=== PATIENT | female | born 1985 | race Asian ===

== ENCOUNTER → 2017-10-22 | Outpatient (CLI) | payer OTHER ==
[2017-10-22 15:58] LABS: URINE APPEARANCE CLEAR (CLEAR); URINE BILIRUBIN NEG (NEG); URINE COLOR YELLOW; URINE NITRITE NEG (NEG); URINE SPECIFIC GRAVITY 1.023 (1.000-1.030); UROBILINOGEN NEG (NEG)
[2017-10-22 16:00] LABS: MANUAL MICROSCOPIC REQUIRED? NO; REVIEW REQ? NO
== END | disposition home or self-care (01) ==
LOC: C.LABSPEC 15:43
PROVIDERS: ATTEND Obstetrics & Gynecology
DX: Z34.01 Encounter for supervision of normal first pregnancy, first trimester (principal)

== ENCOUNTER → 2017-10-29 | Outpatient (CLI) | payer OTHER ==
[2017-10-29 14:45] LABS: BASO % 0.2 %; BASO ABS # 0.01 K/uL (0-0.2); COMPLETE YES; EOS % 2.5 %; HEMATOCRIT 38.2 % (37-47); IG% 0.2 %; LYMPH ABS # 1.61 K/uL (1.2-3.4); MEAN CELL VOLUME 89.9 fL (80-100); MEAN CORPUSCULAR HEMOGLOBIN 31.5 pg (25-34); MEAN CORPUSCULAR HGB CONC 35.1 g/dl (32-36); MEAN PLATELET VOLUME 11.1 fL (7.4-10.4); MONO % 8.4 %; NEUT % 54.7 %; PLATELET COUNT 179 K/uL (130-400); RED BLOOD COUNT 4.25 M/uL (4.2-5.4); WHITE BLOOD COUNT 4.74 K/uL (4.8-10.8)
== END | disposition home or self-care (01) ==
LOC: C.LAB1850 12:35
PROVIDERS: ATTEND Obstetrics & Gynecology
DX: Z34.01 Encounter for supervision of normal first pregnancy, first trimester (principal)

== ENCOUNTER → 2017-11-07 | Outpatient (CLI) | payer OTHER | END | disposition home or self-care (01) | LOC: C.LAB1850 09:51 | PROVIDERS: ATTEND Obstetrics & Gynecology | DX: O02.1 Missed abortion (principal); Z3A.00 Weeks of gestation of pregnancy not specified ==

== ENCOUNTER → 2017-11-14 | Outpatient (CLI) | payer OTHER | END | disposition home or self-care (01) | LOC: C.LAB1850 10:44 | PROVIDERS: ATTEND Obstetrics & Gynecology | DX: O02.1 Missed abortion (principal) ==

== ENCOUNTER → 2017-11-21 | Outpatient (CLI) | payer OTHER | END | disposition home or self-care (01) | LOC: C.LAB1850 10:25 | PROVIDERS: ATTEND Obstetrics & Gynecology | DX: O02.1 Missed abortion (principal); Z3A.00 Weeks of gestation of pregnancy not specified ==

== ENCOUNTER 2019-03-30 19:56 | Inpatient (IN) ==
--- OUTSIDE RECORDS SUMMARY | 2019-03-30 20:00 | External Medical Summary | Continuity of Care Document ---
:1985 Author Name Davon Navarro, Provider Address Unavailable Unavailable , Care Team Providers Name Role Phone Yonis Frost M.D. 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 83) (O24.419) Post term over 40 weeks (645.10) (O48.0) Allergies and Adverse Reactions No Known Drug Allergies (Allergy) Medications Vitamin TABS Refills: 0 Ketone Test In Vitro Strip; check ketones in urine sintia ry morning Melanie Frost Nov S. Start: 20-Jan-2019 Quantity: 1 50 Strip Box Refills: 1 OneTouch Verio Flex System w/Device Kit; CHECK BLOOD S UGARS 4 TIMES DAILY Melanie Frost Nov S. Start: 21-Jan-2019 Quantity: 1 Refills: 0 OneTouch Verio In Vitro Strip; Test 4 times daily Melanie Frost Nov S. Start: 21-Jan-2019 Quantity: 2 100 Strip Box Refills: 3 OneTouch Delica Lancets Fine; Test 4 times daily Maria Victoria Frost Nov S. Start: 21-Jan-2019 Quantity: 4 100 Unit Box Refills: 3 OneTouch Verio In Vitro Strip; Check BGL 4 times a day; Gestational Diabetes Mellitus; 648.83 Melanie Frost Nov S. Start: 21-Jan-2019 Quantity: 3 50 Strip Box Refills: 2 OneTouch Delica Lancets Fine; Check blood sugars 4 bob es a day Melanie Frost Nov S. Start: 21-Jan-2019 Quantity: 150 Refills: 2 Procedures History of nasal polypectomy Status: Com pleted Immunizations Tdap (Adacel) On: 03-Jan-2019 10:17 Lot #: [id number], [employer] Family History Mother Family history of breast cancer (V16.3) (Z80.3) Status: Acti ve Family history of hypertension (V17.49) (Z82.49) Status: Act dianne Family history of hepatitis (V18.8) (Z83.79) Status: Active Family history of kidney stones (V18.69) (Z84.1) Status: Act dianne Father Family history of lung cancer (V16.1) (Z80.1) Status: Active Plan of Treatment Planned Encounters Appointment; Sahil Ruiz M.D. Start: 31-Mar-2019 10:20 Request Planned Observations Planned Goals not documented Results Group B Strep/ROJO 27-Feb-2019 0:00 GRP B BETA STREP CULTURE - ROJO ORDERED P ROCEDURE : GRP B Beta Strep Culture -ROJO; Specime nt : Vaginal/Rectal S ource of Specimen: Vaginal/Rectal Group B Strep Culture : No Group B Strep isolated Non-stress test (Pending) Laboratory: In [place] 28-Mar-2019 11:19 Non-Stress Test Reactive Non-stress test (Pending) Laboratory: [place] 28-Mar-2019 13:37 Non-Stress Test Reactive Vital Signs 28-Mar-2019 10:02 Systolic 110 mm[Hg] Diastolic 80 mm[Hg] Weight 152.25 lb Height 64.5 in BSA Calculated 1.75 m2 BMI Calculated 25.73 kg/m2 21-Mar-2019 10:46 Systolic 122 mm[Hg] Diastolic 78 mm[Hg] Weight 150 lb Height 64.5 in BSA Calculated 1.74 m2 BMI Calculated 25.35 kg/m2 14-Mar-2019 9:33 Systolic 110 mm[Hg] Diastolic 66 mm[Hg] Weight 149.8 lb Height 64.5 in BSA Calculated 1.74 m2 BMI Calculated 25.32 kg/m2 07-Mar-2019 10:30 Systolic 116 mm[Hg] Diastolic 72 mm[Hg] Weight 149.0 lb Height 64.5 in BSA Calculated 1.74 m2 BMI Calculated 25.18 kg/m2 Encounters Appointment; Anastacia Lindsey M.D. 28-Mar-2019 10:30 Encounter Diagnosis: Problem not documented Appointment; OB SC1, Nonstress Test 28-Mar-2019 10:00 Encounter Diagnosis: Problem not documented Appointment; Payton Jimenez M.D. 21-Mar-2019 11:10 Encounter Diagnosis: Problem not documented Appointment; Ann Mcbride M.D. 14-Mar-2019 9:30 Encounter Diagnosis: Problem not documented Appointment; Ann Mcbride M.D. 07-Mar-2019 10:40 Encounter Diagnosis: Problem not documented Appointment; OBGYN JONES2, Ultrasound 07-Mar-2019 10:15 Encounter Diagnosis: Problem not documented Appointment; Marianne Manuel M.D. 27-Feb-2019 10:10 Encounter Diagnosis: Problem not documented Appointment; Dileep De Souza M.D. 20-Feb-2019 9:40 Encounter Diagnosis: Problem not documented Appointment; Payton Jimenez M.D. 06-Feb-2019 9:50 Encounter Diagnosis: Problem not documented Appointment; OBAMARILIS GOLDMAN2, Ultrasound 06-Feb-2019 9:30 Encounter Diagnosis: Problem not documented Appointment; Ranjit Copeland M.D. 20-Jan-2019 10:40 Encounter Diagnosis: Problem not documented Appointment; Adriana Guillen R.D. 20-Jan-2019 9:00 Encounter Diagnosis: Problem not documented Appointment; OBAMARILIS GOLDMAN2, Ultrasound 10-Jan-2019 9:45 Encounter Diagnosis: Problem not documented Appointment; Mita Mckeon DO 03-Jan-2019 9:30 Encounter Diagnosis: Problem not documented Appointment; Payton Jimenez M.D. 29-Nov-2018 14:30 Encounter Diagnosis: Problem not documented Appointment; Sahil Ruiz M.D. 30-Oct-2018 14:30 Encounter Diagnosis: Problem not documented Appointment; OBAMARILIS GOLDMAN2, Ultrasound 30-Oct-2018 13:15 Encounter Diagnosis: Problem not documented Appointment; Ranjit Copeland M.D. 02-Oct-2018 10:40 Encounter Diagnosis: Problem not documented Appointment; Ann Mcbride M.D. 02-Sep-2018 14:20 Encounter Diagnosis: Problem not documented Appointment; OB SC1, Procedure Rm 07-Aug-2018 12:00 Encounter Diagnosis: Problem not documented Appointment; Mita Mckeon DO 07-Aug-2018 12:00 Encounter Diagnosis: Problem not documented Appointment; OBGYN SC2, Ultrasound 01-Aug-2018 9:30 Encounter Diagnosis: Problem not documented Appointment; OB SC1, Nursing Station 30-Jul-2018 10:45 Encounter Diagnosis: Problem not documented Appointment; OBGYN SC1, Ultrasound 07-Nov-2017 9:30 Encounter Diagnosis: Problem not documented Appointment; Anastacia Lindsey M.D. 29-Oct-2017 13:20 Encounter Diagnosis: Problem not documented Appointment; OBGYN SC2, Ultrasound 29-Oct-2017 11:30 Encounter Diagnosis: Problem not documented Appointment; OB SC1, Procedure Rm 29-Oct-2017 9:50 Encounter Diagnosis: Problem not documented Appointment; Anastacia Lindsey M.D. 29-Oct-2017 9:50 Encounter Diagnosis: Problem not documented Appointment; OB AR1, Nursing Station 22-Oct-2017 13:00 Encounter Diagnosis: Problem not documented Appointment; Sahil Ruiz M.D. 31-Mar-2019 10:20 Encounter Diagnosis: Problem not documented
--- NOTE | 2019-03-30 20:17 | History & Physical Report ---
Date of Service March 30, 2019 Assessment & Plan (1) with 41 completed weeks gestation: fetus category one (2) Gestational diabetes: check blood sugar q 3 hrs (3) Normal labor: admit, expectant management, epidural on demand. arom as indicated. anticipate . History of Present Illness Chief Complaint: contractions Primary Care Provider: NO PCP Patient is a 33yo female, with iut at 40 4/7 weeks who presents to labor and delivery complaining of contractions. slight bloody show. no lof. +fm. complicated by a +antibody screen. Eventually diagnosed as a cold agglutin antibody--not clinically signficant to the . Diet controlled GDM./ AB+/ab positive cold agglutin/pap nl/ri/rprnr/hiv-/hepb-/gc/ct-/ 16 week gtt 163, nl 2 hr/ 28 week 2 hr gtt failed/panorama low risk/ gbs neg pmhx--small kidney polyp Allergies Allergy/AdvReac Type Severity Reaction Status Date / Time No Known Allergies Allergy Unverified 03/30/19 20:09 Home Medications Home Medications Medication Instructions Recorded Confirmed Type vit-iron fum-folic ac 1 tab PO DAILY 03/30/19 03/30/19 History [ Vitamin] Patient History Medical History GERD (gastroesophageal reflux disease) Nasal polyp Social History Preferred Language: Portuguese Communication Ability: Effective 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
[2019-03-30 20:29] LABS: Hematocrit (blood only) 37.7 % (37-47); Hemoglobin 13.3 g/dL (12.0-16.0); Mean Corpuscular Volume 96.4 fL (80-100); Mean Platelet Volume 10.3 fL (7.4-10.4); Platelet Count 130 K/uL (130-400); RDW Coefficient of Variation 14.2 % (11.5-14.5); RDW Standard Deviation 49.5 fL (36.4-46.3); Red Blood Count 3.91 M/uL (4.2-5.4); White Blood Count 5.98 K/uL (4.8-10.8)
[2019-03-30] MEDS: LACTATED RINGER'S 1,000 ML IV PRN ×2 (20:38→21:56)
[2019-03-30 20:53] LABS: Mean Corpuscular Hgb Conc 35.3 g/dL (32-36)
[2019-03-30] MEDS ORDERED: BUTORPHANOL TARTRATE 2 MG/ML VIAL IV ONE (20:55)
[2019-03-30] MEDS ORDERED: BUPIVACAINE 0.25% 30 ML VIAL ONE (21:10)
[2019-03-30] MEDS ORDERED: ePHEDrine sulfate 50 MG/ML AMP ONE (21:10)
[2019-03-30] MEDS ORDERED: fentaNYL citrate 100 MCG/2 ML VIAL ONE (21:10)
[2019-03-30] MEDS ORDERED: fentaNYL 2MCG/ML ROPIV 1.25MG/ML 100 ML BAG EPI ONE (21:11)
[2019-03-30] MEDS ORDERED: LACTATED RINGER'S 1,000 ML IV PRN (21:58)
[2019-03-30] MEDS ORDERED: ONDANSETRON INJ 2 MG/ML 2 ML VIAL IV PRN (21:58)
[2019-03-30] MEDS ORDERED: NALBUPHINE HCL INJ 10 MG/ML AMP IV PRN (21:58)
[2019-03-30] MEDS ORDERED: DiphenhydrAMINE HCL 50 MG/ML VIAL IV PRN (21:58)
[2019-03-30] MEDS ORDERED: ePHEDrine sulfate 50 MG/ML AMP IV PRN (21:58)
[2019-03-30] MEDS ORDERED: NALOXONE HCL 1 MG in SODIUM CHLORIDE 0.9% 1000ML 1,000 ML IV PRN (21:58)
[2019-03-30] MEDS ORDERED: NALOXONE HCL 0.4 MG/1 ML VIAL/CARP IV PRN (21:58)
--- NOTE | 2019-03-30 22:01 | Anesthesiology Consultation ---
Date of Service March 30, 2019 Assessment & Plan (1) Encounter for pre-operative examination: Chart Review Chart Review: Acceptable Risk for Labor Epidural Consults Requested none ASA ASA2 Proposed Anesthesia Anesthesia Type: Labor Epidural Risk / Benefits Reviewed With: PT / POA / Parent / Guardian, Accepts Plan and Informed Consent Obtained History Height/Weight Height: 5 ft 3 in Weight: 68.946 kg Allergies Allergy/AdvReac Type Severity Reaction Status Date / Time No Known Allergies Allergy Unverified 03/30/19 20:09 Medications Home Medications Medication Instructions Recorded Confirmed Last Taken vit-iron fum-folic ac 1 tab PO DAILY 03/30/19 03/30/19 03/29/19 [ Vitamin] Active Medications Generic Name Dose Route Start Last Admin Trade Name Freq PRN Reason Stop Dose Admin Lactated Ringer's 1,000 mls @ 125 mls/hr 03/30/19 20:12 03/30/19 21:56 Lr IV 04/01/19 20:11 999 mls/hr .Q8H PRN Administration L&D Protocol Protocol Past Medical History Medical History GERD (gastroesophageal reflux disease) Nasal polyp Exercise / Class Metabolic Activity II 4-5 Yardwork/Stairs/Walk up hill Past Anesthesia History No Hx of Anesthesia Complications and No Family Hx of Anesthesia Complications History of PONV No Hx of PONV and No Hx of Motion Sickness Social History Smoking Status: Never smoker Hx Alcohol Use: No Hx Substance Use: No substance use type: does not use Physical Exam Vital Signs Last Vital Signs Temp 98.2 F 03/30/19 20:00 Pulse 65 03/30/19 21:54 Resp 22 03/30/19 21:30 BP 105/69 03/30/19 20:01 Pulse Ox 96 03/30/19 21:54 ENMT Mouth: no dentition abnormality Thyromental Distance: > or= 3.5 Finger Breadths Mallampati Class: II Neck normal visual inspection Respiratory normal respiratory effort Auscultation: lungs clear to auscultation bilaterally Cardiovascular Rate/Rhythm: regular rate and regular rhythm
[2019-03-30] MEDS: fentaNYL 2MCG/ML ROPIV 1.25MG/ML 100 ML BAG EPI PRN (22:19)
--- NOTE | 2019-03-31 00:40 | Labor Progress Brief Note ---
Date of Service March 31, 2019 Subjective comfortable Assessment & Plan (1) Normal labor: continue expectant management. fetus overall reassuring. last bs was 91, check q 3 hrs. Physical Exam Constitutional: WD/WN, vitals as above Genitourinary: cx--7-8/100/-1 toco--q3min efm--150s with mod variability, small accels, rare variables arom--green mec, particulate Results & Data Vital Signs (Past 12 Hours) Vital Signs Temp Pulse Resp BP Pulse Ox 03/31/19 00:34 64 99 03/31/19 00:31 61 100/59 L 03/31/19 00:29 63 97 03/31/19 00:24 63 97 03/31/19 00:19 63 98 03/31/19 00:16 62 103/55 L 03/31/19 00:14 63 97 03/31/19 00:09 61 98 03/31/19 00:04 64 95 03/31/19 00:02 63 18 96/54 L 03/30/19 23:59 67 97 03/30/19 23:54 66 97 03/30/19 23:49 64 97 03/30/19 23:46 61 97/54 L 03/30/19 23:44 61 97 03/30/19 23:39 66 96 03/30/19 23:34 62 96 03/30/19 23:33 61 90/50 L 03/30/19 23:29 63 96 03/30/19 23:24 63 96 03/30/19 23:19 59 L 98 03/30/19 23:17 61 18 93/52 L 03/30/19 23:14 63 98 03/30/19 23:09 65 98 03/30/19 23:05 98.1 F 18 03/30/19 23:04 65 97 03/30/19 23:02 65 97/52 L 03/30/19 22:59 64 97 03/30/19 22:54 62 98 03/30/19 22:49 60 98 03/30/19 22:47 62 97/51 L 03/30/19 22:44 66 98 03/30/19 22:39 61 98 03/30/19 22:34 67 98 03/30/19 22:30 67 20 112/65 03/30/19 22:29 66 97 03/30/19 22:28 77 110/66 03/30/19 22:26 69 105/65 03/30/19 22:24 63 104/62 98 03/30/19 22:22 65 104/60 03/30/19 22:20 64 96/51 L 03/30/19 22:19 62 97 03/30/19 22:18 63 96/55 L 03/30/19 22:16 66 98/53 L 03/30/19 22:14 68 112/65 98 03/30/19 22:12 65 107/67 03/30/19 22:09 69 100 03/30/19 22:08 72 93 03/30/19 22:04 70 97 03/30/19 22:03 64 114/68 03/30/19 21:59 68 100 03/30/19 21:54 65 96 03/30/19 21:49 69 97 03/30/19 21:44 67 99 03/30/19 21:39 71 99 03/30/19 21:34 68 100 03/30/19 21:30 22 03/30/19 21:29 69 100 03/30/19 21:24 71 100 03/30/19 21:19 70 100 03/30/19 21:14 73 99 03/30/19 21:00 20 03/30/19 20:30 20 03/30/19 20:01 88 105/69 03/30/19 20:00 98.2 F 22
[2019-03-31] MEDS: LACTATED RINGER'S 1,000 ML IV PRN (03:38)
--- NOTE | 2019-03-31 05:10 | Labor Progress Brief Note ---
Date of Service March 31, 2019 Subjective comfortable Assessment & Plan (1) Normal labor: continue expectant management. fetus overall reassuring, mostly category one. anticipate . Physical Exam Constitutional: WD/WN, vitals as above Genitourinary: /- toco--q2-3min efm--140s with mod variability , +accels, rare variable Results & Data Vital Signs (Past 12 Hours) Vital Signs Temp Pulse Resp BP Pulse Ox 03/31/19 05:04 64 97 03/31/19 05:02 61 108/70 03/31/19 04:59 59 L 98 03/31/19 04:54 62 97 03/31/19 04:49 56 L 99 03/31/19 04:46 51 L 16 96/50 L 03/31/19 04:44 50 L 97 03/31/19 04:39 55 L 98 03/31/19 04:34 53 L 96 03/31/19 04:31 54 L 93/55 L 03/31/19 04:29 55 L 95 03/31/19 04:24 59 L 96 03/31/19 04:19 56 L 96 03/31/19 04:17 51 L 96/50 L 03/31/19 04:14 53 L 96 03/31/19 04:09 54 L 97 03/31/19 04:04 56 L 96 03/31/19 04:02 53 L 16 100/55 L 03/31/19 03:59 54 L 97 03/31/19 03:54 57 L 96 03/31/19 03:49 56 L 96 03/31/19 03:47 54 L 95/51 L 03/31/19 03:44 54 L 96 03/31/19 03:39 98.4 F 57 L 97 03/31/19 03:34 61 96 03/31/19 03:32 57 L 16 96/53 L 03/31/19 03:29 58 L 96 03/31/19 03:24 57 L 96 03/31/19 03:19 59 L 96 03/31/19 03:16 69 100/59 L 03/31/19 03:14 62 98 03/31/19 03:09 61 98 03/31/19 03:04 59 L 97 03/31/19 03:01 60 108/63 05/20/19 02:59 62 98 05/20/19 02:54 66 97 05/20/19 02:53 98.4 F 16 05/20/19 02:49 64 97 05/20/19 02:46 65 101/59 L 05/20/19 02:44 64 97 05/20/19 02:39 65 97 05/20/19 02:34 68 97 05/20/19 02:32 67 16 105/63 05/20/19 02:29 64 98 05/20/19 02:24 66 97 05/20/19 02:19 70 97 05/20/19 02:16 64 105/58 L 05/20/19 02:14 65 97 05/20/19 02:09 64 98 05/20/19 02:04 68 97 05/20/19 02:02 67 16 104/61 05/20/19 01:59 66 97 05/20/19 01:54 66 98 05/20/19 01:49 65 97 05/20/19 01:46 65 105/60 05/20/19 01:44 64 97 05/20/19 01:39 66 97 05/20/19 01:34 67 97 05/20/19 01:33 98.6 F 16 05/20/19 01:32 66 108/69 05/20/19 01:29 67 96 05/20/19 01:24 66 97 05/20/19 01:22 70 93 05/20/19 01:19 64 96 05/20/19 01:17 64 110/63 05/20/19 01:14 69 96 05/20/19 01:09 65 97 05/20/19 01:04 63 98 05/20/19 01:01 62 16 110/66 05/20/19 00:59 62 97 05/20/19 00:54 65 98 05/20/19 00:49 67 98 05/20/19 00:47 65 108/65 05/20/19 00:44 62 97 05/20/19 00:39 64 98 05/20/19 00:37 98.6 F 18 05/20/19 00:34 64 99 05/20/19 00:31 61 100/59 L 05/20/19 00:29 63 97 05/20/19 00:24 63 97 05/20/19 00:19 63 98 05/20/19 00:16 62 103/55 L 03/31/19 00:14 63 97 03/31/19 00:09 61 98 05 00:04 64 95 03/31/19 00:02 63 18 96/54 L 03/30/19 23:59 67 97 03/30/19 23:54 66 97 03/30/19 23:49 64 97 03/30/19 23:46 61 97/54 L 03/30/19 23:44 61 97 03/30/19 23:39 66 96 03/30/19 23:34 62 96 03/30/19 23:33 61 90/50 L 03/30/19 23:29 63 96 03/30/19 23:24 63 96 03/30/19 23:19 59 L 98 03/30/19 23:17 61 18 93/52 L 03/30/19 23:14 63 98 03/30/19 23:09 65 98 03/30/19 23:05 98.1 F 18 03/30/19 23:04 65 97 03/30/19 23:02 65 97/52 L 03/30/19 22:59 64 97 03/30/19 22:54 62 98 03/30/19 22:49 60 98 03/30/19 22:47 62 97/51 L 03/30/19 22:44 66 98 03/30/19 22:39 61 98 03/30/19 22:34 67 98 03/30/19 22:30 67 20 112/65 03/30/19 22:29 66 97 03/30/19 22:28 77 110/66 03/30/19 22:26 69 105/65 03/30/19 22:24 63 104/62 98 03/30/19 22:22 65 104/60 03/30/19 22:20 64 96/51 L 03/30/19 22:19 62 97 03/30/19 22:18 63 96/55 L 03/30/19 22:16 66 98/53 L 03/30/19 22:14 68 112/65 98 03/30/19 22:12 65 107/67 03/30/19 22:09 69 100 03/30/19 22:08 72 93 03/30/19 22:04 70 97 03/30/19 22:03 64 114/68 03/30/19 21:59 68 100 03/30/19 21:54 65 96 03/30/19 21:49 69 97 03/30/19 21:44 67 99 03/30/19 21:39 71 99 03/30/19 21:34 68 100 03/30/19 21:30 22 03/30/19 21:29 69 100 03/30/19 21:24 71 100 03/30/19 21:19 70 100 03/30/19 21:14 73 99 03/30/19 21:00 20 03/30/19 20:30 20 03/30/19 20:01 88 105/69 03/30/19 20:00 98.2 F 22
--- NOTE | 2019-03-31 07:24 | Labor Progress Brief Note ---
Date of Service March 31, 2019 Subjective comfortable, is starting to feel some pressure Assessment & Plan (1) Normal labor: Continue expectant management. fetus overall reassuring. Physical Exam Constitutional: WD/WN, vitals as above Genitourinary: cx--ant lip per nursing/100/0 toco--q3-4min efm--140s with mod variability, small accels, rare variable Results & Data Vital Signs (Past 12 Hours) Vital Signs Temp Pulse Resp BP Pulse Ox 03/31/19 07:19 62 98 03/31/19 07:17 61 107/63 03/31/19 07:14 62 97 03/31/19 07:09 64 98 03/31/19 07:04 58 L 98 03/31/19 07:03 99.1 F 22 03/31/19 07:02 64 106/66 03/31/19 06:59 65 98 03/31/19 06:54 58 L 97 03/31/19 06:49 63 98 03/31/19 06:47 59 L 111/70 03/31/19 06:44 57 L 98 03/31/19 06:39 62 98 03/31/19 06:34 66 99 03/31/19 06:31 65 16 113/70 03/31/19 06:29 72 98 03/31/19 06:24 73 97 03/31/19 06:19 73 97 03/31/19 06:17 65 16 106/64 03/31/19 06:14 84 97 03/31/19 06:09 76 97 03/31/19 06:04 64 98 03/31/19 06:02 69 102/65 03/31/19 05:59 62 98 03/31/19 05:54 68 98 03/31/19 05:49 82 98 03/31/19 05:47 66 102/62 03/31/19 05:44 69 97 03/31/19 05:39 81 97 03/31/19 05:34 65 97 03/31/19 05:31 77 92/58 L 03/31/19 05:29 77 97 03/31/19 05:25 98.6 F 16 03/31/19 05:24 65 97 03/31/19 05:19 65 97 03/31/19 05:16 62 118/68 03/31/19 05:14 64 97 05/20/19 05:09 63 97 03/31/19 05:04 64 97 03/31/19 05:02 61 108/70 03/31/19 04:59 59 L 98 03/31/19 04:54 62 97 03/31/19 04:49 56 L 99 03/31/19 04:46 51 L 16 96/50 L 03/31/19 04:44 50 L 97 03/31/19 04:39 55 L 98 03/31/19 04:34 53 L 96 03/31/19 04:31 54 L 93/55 L 03/31/19 04:29 55 L 95 03/31/19 04:24 59 L 96 03/31/19 04:19 56 L 96 03/31/19 04:17 51 L 96/50 L 03/31/19 04:14 53 L 96 03/31/19 04:09 54 L 97 03/31/19 04:04 56 L 96 03/31/19 04:02 53 L 16 100/55 L 03/31/19 03:59 54 L 97 03/31/19 03:54 57 L 96 03/31/19 03:49 56 L 96 03/31/19 03:47 54 L 95/51 L 03/31/19 03:44 54 L 96 03/31/19 03:39 98.4 F 57 L 97 03/31/19 03:34 61 96 03/31/19 03:32 57 L 16 96/53 L 03/31/19 03:29 58 L 96 03/31/19 03:24 57 L 96 03/31/19 03:19 59 L 96 03/31/19 03:16 69 100/59 L 03/31/19 03:14 62 98 03/31/19 03:09 61 98 03/31/19 03:04 59 L 97 03/31/19 03:01 60 108/63 03/31/19 02:59 62 98 03/31/19 02:54 66 97 03/31/19 02:53 98.4 F 16 03/31/19 02:49 64 97 03/31/19 02:46 65 101/59 L 03/31/19 02:44 64 97 03/31/19 02:39 65 97 03/31/19 02:34 68 97 05/20/19 02:32 67 16 105/63 05/20/19 02:29 64 98 05/20/19 02:24 66 97 0520/19 02:19 70 97 052019 02:16 64 105/58 L 0520/ 02:14 65 97 0520 02:09 64 98 0520/ 02:04 68 97 0520 02:02 67 16 104/61 0520/19 01:59 66 97 052019 01:54 66 98 05/20/19 01:49 65 97 05/20/19 01:46 65 105/60 05/20/19 01:44 64 97 05/20/19 01:39 66 97 05/20/ 01:34 67 97 0520/ 01:33 98.6 F 16 05 01:32 66 108/69 0520/19 01:29 67 96 0520/ 01:24 66 97 05 01:22 70 93 05 01:19 64 96 0520/19 01:17 64 110/63 0520/19 01:14 69 96 05/20/19 01:09 65 97 05 01:04 63 98 0520/ 01:01 62 16 110/66 0520/19 00:59 62 97 0520/19 00:54 65 98 052019 00:49 67 98 05/20/19 00:47 65 108/65 0520/19 00:44 62 97 0520/19 00:39 64 98 0520/19 00:37 98.6 F 18 0520/19 00:34 64 99 0520/19 00:31 61 100/59 L 0520/19 00:29 63 97 05/20/19 00:24 63 97 05/20/19 00:19 63 98 0520/19 00:16 62 103/55 L 0520/ 00:14 63 97 0520/19 00:09 61 98 05/20/ 00:04 64 95 0520/19 00:02 63 18 96/54 L 05/19 23:59 67 97 0519 23:54 66 97 05/19/19 23:49 64 97 05/19/19 23:46 61 97/54 L 03/30/19 23:44 61 97 03/30/19 23:39 66 96 03/30/19 23:34 62 96 03/30/19 23:33 61 90/50 L 03/30/19 23:29 63 96 03/30/19 23:24 63 96 03/30/19 23:19 59 L 98 03/30/19 23:17 61 18 93/52 L 03/30/19 23:14 63 98 03/30/19 23:09 65 98 03/30/19 23:05 98.1 F 18 03/30/19 23:04 65 97 03/30/19 23:02 65 97/52 L 03/30/19 22:59 64 97 03/30/19 22:54 62 98 03/30/19 22:49 60 98 03/30/19 22:47 62 97/51 L 03/30/19 22:44 66 98 03/30/19 22:39 61 98 03/30/19 22:34 67 98 03/30/19 22:30 67 20 112/65 03/30/19 22:29 66 97 03/30/19 22:28 77 110/66 03/30/19 22:26 69 105/65 03/30/19 22:24 63 104/62 98 03/30/19 22:22 65 104/60 03/30/19 22:20 64 96/51 L 03/30/19 22:19 62 97 03/30/19 22:18 63 96/55 L 03/30/19 22:16 66 98/53 L 03/30/19 22:14 68 112/65 98 03/30/19 22:12 65 107/67 03/30/19 22:09 69 100 03/30/19 22:08 72 93 03/30/19 22:04 70 97 03/30/19 22:03 64 114/68 03/30/19 21:59 68 100 05 21:54 65 96 03/30/19 21:49 69 97 03/30/19 21:44 67 99 03/30/19 21:39 71 99 03/30/19 21:34 68 100 03/30/19 21:30 22 03/30/19 21:29 69 100 03/30/19 21:24 71 100 03/30/19 21:19 70 100 03/30/19 21:14 73 99 03/30/19 21:00 20 03/30/19 20:30 20 03/30/19 20:01 88 105/69 03/30/19 20:00 98.2 F 22
--- NOTE | 2019-03-31 09:42 | Obstetrical Progress Note ---
Date of Service March 31, 2019 Subjective Actively pushing. station +3, good pushing effort. 140s with variable decels with pushing. Anticipate . Results & Data Vital Signs (Past 12 Hours) Vital Signs Temp Pulse Resp BP Pulse Ox 03/31/19 09:39 101 H 97 03/31/19 09:34 97 H 98 03/31/19 09:31 102 H 104/69 03/31/19 09:29 93 H 98 03/31/19 09:24 85 98 03/31/19 09:19 78 98 03/31/19 09:16 70 101/64 03/31/19 09:14 80 98 03/31/19 09:09 77 98 03/31/19 09:04 68 98 03/31/19 09:03 98.8 F 20 03/31/19 09:02 68 105/60 03/31/19 08:59 68 97 03/31/19 08:54 69 97 03/31/19 08:49 70 97 03/31/19 08:48 68 102/58 L 03/31/19 08:44 72 96 03/31/19 08:39 67 96 03/31/19 08:34 68 97 03/31/19 08:31 67 100/59 L 03/31/19 08:29 65 97 03/31/19 08:24 69 97 03/31/19 08:19 69 96 03/31/19 08:16 66 99/58 L 03/31/19 08:14 68 97 03/31/19 08:09 67 96 03/31/19 08:04 68 97 03/31/19 08:02 68 101/59 L 03/31/19 07:59 69 97 03/31/19 07:54 66 97 03/31/19 07:49 65 96 03/31/19 07:47 64 103/59 L 03/31/19 07:44 67 97 03/31/19 07:39 65 96 03/31/19 07:34 65 96 03/31/19 07:33 63 107/64 052019 07:29 65 97 20 07:24 66 97 03/31/19 07:19 62 98 05 07:17 61 107/63 20 07:14 62 97 03/31/19 07:09 64 98 0520/19 07:04 58 L 98 03/31/19 07:03 99.1 F 22 03/31/19 07:02 64 106/66 03/31/19 06:59 65 98 03/31/19 06:54 58 L 97 03/31/19 06:49 63 98 03/31/19 06:47 59 L 111/70 03/31/19 06:44 57 L 98 03/31/19 06:39 62 98 03/31/19 06:34 66 99 03/31/19 06:31 65 16 113/70 03/31/19 06:29 72 98 03/31/19 06:24 73 97 03/31/19 06:19 73 97 03/31/19 06:17 65 16 106/64 03/31/19 06:14 84 97 03/31/19 06:09 76 97 03/31/19 06:04 64 98 03/31/19 06:02 69 102/65 03/31/19 05:59 62 98 03/31/19 05:54 68 98 03/31/19 05:49 82 98 03/31/19 05:47 66 102/62 03/31/19 05:44 69 97 03/31/19 05:39 81 97 03/31/19 05:34 65 97 03/31/19 05:31 77 92/58 L 03/31/19 05:29 77 97 03/31/19 05:25 98.6 F 16 03/31/19 05:24 65 97 03/31/19 05:19 65 97 03/31/19 05:16 62 118/68 03/31/19 05:14 64 97 03/31/19 05:09 63 97 03/31/19 05:04 64 97 03/31/19 05:02 61 108/70 03/31/19 04:59 59 L 98 03/31/19 04:54 62 97 03/31/19 04:49 56 L 99 03/31/19 04:46 51 L 16 96/50 L 03/31/19 04:44 50 L 97 03/31/19 04:39 55 L 98 03/31/19 04:34 53 L 96 03/31/19 04:31 54 L 93/55 L 03/31/19 04:29 55 L 95 03/31/19 04:24 59 L 96 03/31/19 04:19 56 L 96 03/31/19 04:17 51 L 96/50 L 03/31/19 04:14 53 L 96 03/31/19 04:09 54 L 97 03/31/19 04:04 56 L 96 03/31/19 04:02 53 L 16 100/55 L 03/31/19 03:59 54 L 97 03/31/19 03:54 57 L 96 03/31/19 03:49 56 L 96 03/31/19 03:47 54 L 95/51 L 03/31/19 03:44 54 L 96 03/31/19 03:39 98.4 F 57 L 97 03/31/19 03:34 61 96 03/31/19 03:32 57 L 16 96/53 L 03/31/19 03:29 58 L 96 03/31/19 03:24 57 L 96 03/31/19 03:19 59 L 96 03/31/19 03:16 69 100/59 L 03/31/19 03:14 62 98 03/31/19 03:09 61 98 03/31/19 03:04 59 L 97 03/31/19 03:01 60 108/63 03/31/19 02:59 62 98 03/31/19 02:54 66 97 03/31/19 02:53 98.4 F 16 03/31/19 02:49 64 97 03/31/19 02:46 65 101/59 L 03/31/19 02:44 64 97 03/31/19 02:39 65 97 03/31/19 02:34 68 97 03/31/19 02:32 67 16 105/63 03/31/19 02:29 64 98 03/31/19 02:24 66 97 03/31/19 02:19 70 97 03/31/19 02:16 64 105/58 L 03/31/19 02:14 65 97 03/31/19 02:09 64 98 03/31/19 02:04 68 97 03/31/19 02:02 67 16 104/61 03/31/19 01:59 66 97 03/31/19 01:54 66 98 03/31/19 01:49 65 97 03/31/19 01:46 65 105/60 03/31/19 01:44 64 97 0520 01:39 66 97 0520 01:34 67 97 0520 01:33 98.6 F 16 03/31/19 01:32 66 108/69 0520 01:29 67 96 0520 01:24 66 97 05 01:22 70 93 05 01:19 64 96 05 01:17 64 110/63 05 01:14 69 96 05 01:09 65 97 05 01:04 63 98 05 01:01 62 16 110/66 0520 00:59 62 97 05 00:54 65 98 03/31/19 00:49 67 98 05 00:47 65 108/65 05 00:44 62 97 05 00:39 64 98 05 00:37 98.6 F 18 03/31/19 00:34 64 99 05 00:31 61 100/59 L 03/31/19 00:29 63 97 05 00:24 63 97 05 00:19 63 98 05 00:16 62 103/55 L 03/31/19 00:14 63 97 03/31/19 00:09 61 98 03/31/19 00:04 64 95 05 00:02 63 18 96/54 L 03/30/19 23:59 67 97 05 23:54 66 97 05 23:49 64 97 05 23:46 61 97/54 L 03/30/19 23:44 61 97 0519 23:39 66 96 05 23:34 62 96 05 23:33 61 90/50 L 03/30/19 23:29 63 96 05 23:24 63 96 05 23:19 59 L 98 03/30/19 23:17 61 18 93/52 L 05 23:14 63 98 05 23:09 65 98 05 23:05 98.1 F 18 03/30/19 23:04 65 97 03/30/19 23:02 65 97/52 L 03/30/19 22:59 64 97 03/30/19 22:54 62 98 03/30/19 22:49 60 98 03/30/19 22:47 62 97/51 L 03/30/19 22:44 66 98 03/30/19 22:39 61 98 03/30/19 22:34 67 98 03/30/19 22:30 67 20 112/65 03/30/19 22:29 66 97 03/30/19 22:28 77 110/66 03/30/19 22:26 69 105/65 03/30/19 22:24 63 104/62 98 03/30/19 22:22 65 104/60 03/30/19 22:20 64 96/51 L 03/30/19 22:19 62 97 03/30/19 22:18 63 96/55 L 03/30/19 22:16 66 98/53 L 03/30/19 22:14 68 112/65 98 03/30/19 22:12 65 107/67 03/30/19 22:09 69 100 03/30/19 22:08 72 93 03/30/19 22:04 70 97 03/30/19 22:03 64 114/68 03/30/19 21:59 68 100 03/30/19 21:54 65 96 03/30/19 21:49 69 97 03/30/19 21:44 67 99
[2019-03-31] MEDS: fentaNYL 2MCG/ML ROPIV 1.25MG/ML 100 ML BAG EPI PRN (10:24)
[2019-03-31] MEDS: OXYTOCIN 30 UNITS/500 ML BAG IV PRN ×2 (11:23→11:49)
[2019-03-31] MEDS ORDERED: SUPERCREAM 0.870% 15 GM JAR EXT PRN (11:59)
[2019-03-31] MEDS ORDERED: BENZOCAINE 20% AER SPR 82.5 GM CAN EXT PRN (11:59)
[2019-03-31] MEDS ORDERED: OXYTOCIN 30 UNITS/500 ML BAG IV PRN (11:59)
[2019-03-31] MEDS ORDERED: DIPHTHERIA/TETANUS/PERTUSSIS 0.5 ML SYR/VIAL IM ONE (11:59)
[2019-03-31] MEDS ORDERED: HYDROCORTISONE ACETATE 25 MG SUPP PR PRN (11:59)
[2019-03-31] MEDS ORDERED: ACETAMINOPHEN 325 MG TAB PO PRN (11:59)
[2019-03-31] MEDS ORDERED: SODIUM CHLORIDE 0.9% 250 ML IV PRN (12:05)
[2019-03-31] MEDS ORDERED: OXYTOCIN 20 UNITS in LACTATED RINGER'S 1,000 ML IV SCH (12:15)
--- NOTE | 2019-03-31 12:48 | Delivery Summary ---
DATE OF OPERATION: 03/31/2019 The patient dilated to complete and pushed to deliver a viable male , Apgars 8 and 9 via over an intact perineum. Left nuchal arm delivered and then anterior shoulder delivered with ease. Nose and mouth bulb suctioned and remainder of the body delivered. The infant vigorous and cried at . Cord clamped at 30 seconds of life and on maternal abdomen where the cord was then doubly clamped and cut. The cord blood was obtained. Placenta delivered spontaneously and intact, 3-vessel cord. Evidence of a cervical laceration noted thereafter. At first, uterine tone improved with dilute Pitocin and uterine massage. However, when assessing for further laceration, the uterine tone worsened and the uterus was swept twice to evaluate for retained products and there was no retained products. The IV infusion had been blocked and when it became adequate, again the dilute Pitocin and fundal massage resulted in good uterine tone and more controlled bleeding. The cervical laceration was not actively bleeding; however, with retractors, the laceration was identified and the cervix was reapproximated with 3-0 Vicryl in a running fashion. The perineal skin had not lacerated; however, the perineum had a deep laceration with multiple areas of bleeding. Multiple [id number] sutures of 3-0 Vicryl were placed. This helped to control the bleeding. The vaginal extension of the laceration was identified and reapproximated in a running interlocking fashion with 3-0 Vicryl. When it came to the opening at the hymen, the tissue was very edematous and tore easily. The remainder of the lacerations of the perineum and vagina were reapproximated using 4-0 Vicryl. This took many sutures as there was active bleeding. The left labia was also , and this was reapproximated using 4-0 Vicryl. Superior to the urethra periclitorally, there was a bleeding site that was stitched with 3 interrupted sutures of 4-0 Vicryl. The perineum itself was reinspected and hemostasis had become adequate. The uterine fundal tone was notably adequate. The cervix was swept of any remaining blood clots. The sulci were intact. The EBL was 500 mL. Rectal exam was performed with no sutures identified. Mother and baby stable in recovery. I attest to the content of the Intraoperative Record and any orders documented therein. Any exceptions are noted below. MTDD
[2019-03-31] MEDS: CEFAZOLIN 2000MG 2,000 MG/15 ML SYR IV SCH ×2 (12:59→20:31)
--- NOTE | 2019-03-31 13:59 | Anesthesia Procedure Note ---
Date of Service March 31, 2019 Anesthesia Post Epidural Note Vital Signs Vital Signs: Temp Pulse Resp BP Pulse Ox 03/31/19 13:57 108 H 96/51 L 03/31/19 13:31 100 H 104/62 03/31/19 13:16 106 H 110/54 L 03/31/19 13:01 79 98/54 L 03/31/19 12:46 73 94/52 L 03/31/19 12:31 75 16 91/51 L 03/31/19 12:16 75 107/55 L 03/31/19 12:04 80 97/55 L 03/31/19 12:01 77 101/58 L 03/31/19 11:46 86 104/63 03/31/19 11:41 71 104/58 L 03/31/19 11:31 74 104/60 03/31/19 11:26 86 97/54 L 03/31/19 11:16 106 H 98/64 L 03/31/19 11:14 103 H 97 03/31/19 11:09 109 H 97 03/31/19 11:04 98 H 97 03/31/19 11:02 109 H 95/55 L 03/31/19 10:59 102 H 97 03/31/19 10:54 105 H 96 03/31/19 10:49 83 96 03/31/19 10:48 105 H 110/75 03/31/19 10:46 87 94 03/31/19 10:44 97 H 97 03/31/19 10:39 99 H 96 03/31/19 10:36 81 94 03/31/19 10:34 78 96 03/31/19 10:32 92 H 99/62 L 03/31/19 10:29 82 97 03/31/19 10:24 80 97 03/31/19 10:19 101 H 97 03/31/19 10:16 96 H 96/52 L 03/31/19 10:14 90 98 03/31/19 10:09 100 H 96 03/31/19 10:04 108 H 97 03/31/19 10:02 90 102/54 L 03/31/19 09:59 92 H 97 03/31/19 09:54 76 98 03/31/19 09:49 93 H 98 03/31/19 09:48 86 105/56 L 03/31/19 09:44 96 H 97 0520/19 09:39 101 H 97 0520/19 09:34 97 H 98 0520/19 09:31 102 H 104/69 0520/19 09:29 93 H 98 0520/ 09:24 85 98 0520/19 09:19 78 98 0520/19 09:16 70 101/64 0520/19 09:14 80 98 0520 09:09 77 98 0520 09:04 68 98 0520 09:03 37.1 C 20 03/31/19 09:02 68 105/60 0520/19 08:59 68 97 0520/ 08:54 69 97 0520/19 08:49 70 97 052019 08:48 68 102/58 L 2019 08:44 72 96 0520/ 08:39 67 96 0520/19 08:34 68 97 0520 08:31 67 100/59 L 03/31/19 08:29 65 97 0520/19 08:24 69 97 0520/19 08:19 69 96 0520/19 08:16 66 99/58 L 03/31/19 08:14 68 97 0520/ 08:09 67 96 05/ 08:04 68 97 0520/19 08:02 68 101/59 L 03/31/19 07:59 69 97 0520/19 07:54 66 97 0520/19 07:49 65 96 0520/19 07:47 64 103/59 L 03/31/19 07:44 67 97 0520/19 07:39 65 96 0520/19 07:34 65 96 0520/19 07:33 63 107/64 0520/19 07:29 65 97 0520/19 07:24 66 97 0520/19 07:19 62 98 0520/19 07:17 61 107/63 0520/19 07:14 62 97 0520/19 07:09 64 98 0520/19 07:04 58 L 98 03/31/19 07:03 37.3 C 22 03/31/19 07:02 64 106/66 05/20/19 06:59 65 98 05/20/19 06:54 58 L 97 03/31/19 06:49 63 98 03/31/19 06:47 59 L 111/70 03/31/19 06:44 57 L 98 03/31/19 06:39 62 98 03/31/19 06:34 66 99 03/31/19 06:31 65 16 113/70 03/31/19 06:29 72 98 03/31/19 06:24 73 97 03/31/19 06:19 73 97 03/31/19 06:17 65 16 106/64 03/31/19 06:14 84 97 03/31/19 06:09 76 97 03/31/19 06:04 64 98 03/31/19 06:02 69 102/65 03/31/19 05:59 62 98 03/31/19 05:54 68 98 03/31/19 05:49 82 98 03/31/19 05:47 66 102/62 03/31/19 05:44 69 97 03/31/19 05:39 81 97 03/31/19 05:34 65 97 03/31/19 05:31 77 92/58 L 03/31/19 05:29 77 97 03/31/19 05:25 37.0 C 16 03/31/19 05:24 65 97 03/31/19 05:19 65 97 03/31/19 05:16 62 118/68 03/31/19 05:14 64 97 03/31/19 05:09 63 97 03/31/19 05:04 64 97 03/31/19 05:02 61 108/70 03/31/19 04:59 59 L 98 03/31/19 04:54 62 97 03/31/19 04:49 56 L 99 03/31/19 04:46 51 L 16 96/50 L 03/31/19 04:44 50 L 97 03/31/19 04:39 55 L 98 03/31/19 04:34 53 L 96 03/31/19 04:31 54 L 93/55 L 03/31/19 04:29 55 L 95 03/31/19 04:24 59 L 96 03/31/19 04:19 56 L 96 03/31/19 04:17 51 L 96/50 L 03/31/19 04:14 53 L 96 03/31/19 04:09 54 L 97 03/31/19 04:04 56 L 96 03/31/19 04:02 53 L 16 100/55 L 03/31/19 03:59 54 L 97 03/31/19 03:54 57 L 96 03/31/19 03:49 56 L 96 03/31/19 03:47 54 L 95/51 L 03/31/19 03:44 54 L 96 03/31/19 03:39 36.9 C 57 L 97 03/31/19 03:34 61 96 03/31/19 03:32 57 L 16 96/53 L 03/31/19 03:29 58 L 96 03/31/19 03:24 57 L 96 03/31/19 03:19 59 L 96 03/31/19 03:16 69 100/59 L 03/31/19 03:14 62 98 03/31/19 03:09 61 98 03/31/19 03:04 59 L 97 03/31/19 03:01 60 108/63 03/31/19 02:59 62 98 03/31/19 02:54 66 97 03/31/19 02:53 36.9 C 16 03/31/19 02:49 64 97 03/31/19 02:46 65 101/59 L 03/31/19 02:44 64 97 03/31/19 02:39 65 97 03/31/19 02:34 68 97 03/31/19 02:32 67 16 105/63 03/31/19 02:29 64 98 03/31/19 02:24 66 97 03/31/19 02:19 70 97 03/31/19 02:16 64 105/58 L 03/31/19 02:14 65 97 03/31/19 02:09 64 98 03/31/19 02:04 68 97 03/31/19 02:02 67 16 104/61 03/31/19 01:59 66 97 03/31/19 01:54 66 98 03/31/19 01:49 65 97 03/31/19 01:46 65 105/60 03/31/19 01:44 64 97 03/31/19 01:39 66 97 03/31/19 01:34 67 97 03/31/19 01:33 37.0 C 16 03/31/19 01:32 66 108/69 05 01:29 67 96 05 01:24 66 97 03/31/19 01:22 70 93 03/31/19 01:19 64 96 03/31/19 01:17 64 110/63 03/31/19 01:14 69 96 03/31/19 01:09 65 97 03/31/19 01:04 63 98 03/31/19 01:01 62 16 110/66 03/31/19 00:59 62 97 03/31/19 00:54 65 98 03/31/19 00:49 67 98 03/31/19 00:47 65 108/65 03/31/19 00:44 62 97 03/31/19 00:39 64 98 03/31/19 00:37 37.0 C 18 03/31/19 00:34 64 99 03/31/19 00:31 61 100/59 L 03/31/19 00:29 63 97 03/31/19 00:24 63 97 03/31/19 00:19 63 98 03/31/19 00:16 62 103/55 L 03/31/19 00:14 63 97 03/31/19 00:09 61 98 03/31/19 00:04 64 95 03/31/19 00:02 63 18 96/54 L 03/30/19 23:59 67 97 03/30/19 23:54 66 97 03/30/19 23:49 64 97 03/30/19 23:46 61 97/54 L 03/30/19 23:44 61 97 03/30/19 23:39 66 96 03/30/19 23:34 62 96 05 23:33 61 90/50 L 03/30/19 23:29 63 96 05 23:24 63 96 03/30/19 23:19 59 L 98 03/30/19 23:17 61 18 93/52 L 03/30/19 23:14 63 98 05 23:09 65 98 05 23:05 36.7 C 18 03/30/19 23:04 65 97 05 23:02 65 97/52 L 03/30/19 22:59 64 97 03/30/19 22:54 62 98 05 22:49 60 98 05/19/19 22:47 62 97/51 L 03/30/19 22:44 66 98 03/30/19 22:39 61 98 03/30/19 22:34 67 98 03/30/19 22:30 67 20 112/65 03/30/19 22:29 66 97 03/30/19 22:28 77 110/66 03/30/19 22:26 69 105/65 03/30/19 22:24 63 104/62 98 03/30/19 22:22 65 104/60 03/30/19 22:20 64 96/51 L 03/30/19 22:19 62 97 03/30/19 22:18 63 96/55 L 03/30/19 22:16 66 98/53 L 03/30/19 22:14 68 112/65 98 03/30/19 22:12 65 107/67 03/30/19 22:09 69 100 03/30/19 22:08 72 93 03/30/19 22:04 70 97 03/30/19 22:03 64 114/68 03/30/19 21:59 68 100 03/30/19 21:54 65 96 03/30/19 21:49 69 97 03/30/19 21:44 67 99 03/30/19 21:39 71 99 03/30/19 21:34 68 100 03/30/19 21:30 22 03/30/19 21:29 69 100 03/30/19 21:24 71 100 03/30/19 21:19 70 100 03/30/19 21:14 73 99 03/30/19 21:00 20 03/30/19 20:30 20 03/30/19 20:01 88 105/69 03/30/19 20:00 36.8 C 22 Pain Intensity Right Lower: Pain Intensity: 2 Notes Mental Status: alert / awake / arousable and participated in evaluation Nausea / Vomiting: adequately controlled Pain: adequately controlled Airway Patency, RR, SpO2: stable & adequate BP & HR: stable & adequate Hydration State: stable & adequate Neuraxial Anesthesia: was administered and sensory block is resolving Anesthetic Complications: no major complications apparent and Pt Satisfied with anesthetic care Epidural: Removed without complications and With tip intact
[2019-03-31 15:40] LABS: Hematocrit (blood only) 29.9 % (37-47); Hemoglobin 10.3 g/dL (12.0-16.0); Mean Corpuscular Hgb Conc 34.4 g/dL (32-36); Mean Corpuscular Volume 97.1 fL (80-100); Platelet Count 107 K/uL (130-400); RDW Coefficient of Variation 14.2 % (11.5-14.5); RDW Standard Deviation 50.1 fL (36.4-46.3); Red Blood Count 3.08 M/uL (4.2-5.4); White Blood Count 9.41 K/uL (4.8-10.8)
[2019-03-31] MEDS: DOCUSATE SODIUM 100 MG CAP PO SCH (20:31)
[2019-03-31] MEDS: IBUPROFEN 600 MG TAB PO PRN (20:31)
[2019-04-01] MEDS: IBUPROFEN 600 MG TAB PO PRN ×5 (03:10→22:17)
[2019-04-01] MEDS: CEFAZOLIN 2000MG 2,000 MG/15 ML SYR IV SCH (04:34)
--- NOTE | 2019-04-01 07:13 | Obstetrical Progress Note ---
Date of Service <Jack San MD - Last Filed: 04/01/19 07:13> April 01, 2019 Assessment & Plan <Jack San MD - Last Filed: 04/01/19 07:13> (1) (spontaneous vaginal delivery): 33 year old Vital Signs Reviewed and WNL; BP 98/69 which is at her baseline Blood type AB+, GBS -, Rubella Immune Patient with urinary cath in. After tears and bleeding during delivery got a hemoglobin after near syncopal episode which showed hemoglobin of 10.3 Will hopefully be able to pull the catheter later today and ambulate around the unit. Subjective <Jack San MD - Last Filed: 04/01/19 07:13> Ambulation: limited ambulation (Episode of presyncope yesterday) Voiding: carranza catheter in place Passing Gas:: Yes Diet Tolerance:: regular diet Lochia:: Small Feeding Type:: breast feeding Current Pain Level(1-10): 5 Ms Erick still has moderate pain around her vagina, she had rather extensive tearing during delivery and is receiving percocet. She had an episode of light headedness yesterday going to the bathroom now she has a carranza catheter in place. Constitutional: no fever and no chills Respiratory: no cough and no dyspnea Cardiovascular: + lightheadedness and + syncope; no chest pain and no dyspnea Gastrointestinal: + abdominal pain (very mild, mostly vaginal pain); no nausea and no vomiting Physical Exam <Jack San MD - Last Filed: 04/01/19 07:13> Vital Signs (Past 24 Hours) Last Vital Signs Temp 36.7 C 04/01/19 04:08 Pulse 70 04/01/19 04:08 Resp 18 04/01/19 04:08 BP 98/69 L 04/01/19 04:08 Pulse Ox 97 03/31/19 14:50 Constitutional well developed, well nourished, cooperative and comfortable; no acute distress Respiratory normal respiratory effort, lungs clear to auscultation Cardiovascular Rate/Rhythm: regular rate and regular rhythm Heart Sounds: + murmur (faint systolic) Extremities: no calf tenderness and no pedal edema Gastrointestinal (Abdomen) Percussion/Palpation: abdomen soft; abdomen nontender gravid Genitourinary OB Exam Abdomen: + fundal height Fundus: + firm and + relation to umbilicus (at or just under umbilicus); not tender <Mita Mckeon DO - Last Filed: 04/01/19 07:52> Co-Signing Physician Notes Resident Physician Supervision Note: I was present with Dr. San during the history and exam. I discussed the case with the resident and agree with the findings and plan as documented in the note. Any exceptions or clarifications are listed here: PPD#1 doing well. Carranza was placed overnight for urine retention, draining well with good urine output. Discussed with her that may try voiding trial again later today . Documented By: Mita Mckeon DO Resident Activity Tracking <Jack San MD - Last Filed: 04/01/19 07:13> Resident Involvement: Resident Care Provided Care Provided: Adult [facility] Medicine
[2019-04-01 07:29] LABS: Hematocrit (blood only) 24.7 % (37-47); Hemoglobin 8.7 g/dL (12.0-16.0); Mean Corpuscular Hgb Conc 35.2 g/dL (32-36); Mean Corpuscular Volume 96.9 fL (80-100); RDW Coefficient of Variation 14.2 % (11.5-14.5); RDW Standard Deviation 50.6 fL (36.4-46.3); Red Blood Count 2.55 M/uL (4.2-5.4); White Blood Count 7.98 K/uL (4.8-10.8)
[2019-04-01 08:11] LABS: Mean Platelet Volume 9.9 fL (7.4-10.4); Platelet Count 95 K/uL (130-400); Platelet Estimate Decreased (Normal)
[2019-04-01] MEDS: DOCUSATE SODIUM 100 MG CAP PO SCH ×2 (08:19→20:08)
[2019-04-02] MEDS: IBUPROFEN 600 MG TAB PO PRN ×2 (04:58→08:38)
[2019-04-02 06:32] LABS: Hematocrit (blood only) 24.9 % (37-47); Hemoglobin 8.6 g/dL (12.0-16.0)
--- NOTE | 2019-04-02 07:17 | Obstetrical Progress Note ---
Date of Service <Jack San MD - Last Filed: 04/02/19 07:17> April 02, 2019 Assessment & Plan <Jack San MD - Last Filed: 04/02/19 07:17> (1) (spontaneous vaginal delivery): 33 year old day 2 post Vital Signs Reviewed and WNL; BP 92/55 which is near her baseline Hgb 8.6 Blood type AB+, GBS -, Rubella Immune Patient had urinary catheter pulled, using restroom with just mild burning with urination No further presyncopal episodes. Went over all discharge instructions with patient. Subjective <Jack San MD - Last Filed: 04/02/19 07:17> Ambulation: ambulating normally Voiding: no voiding problems Passing Gas:: Yes Diet Tolerance:: regular diet Lochia:: Small Feeding Type:: breast feeding Current Pain Level(1-10): 4 Constitutional: no fever and no chills Respiratory: no cough and no dyspnea Cardiovascular: no chest pain, no dyspnea and no calf pain Gastrointestinal: + abdominal pain (Mild crampy); no nausea and no vomiting Physical Exam <Jack San MD - Last Filed: 04/02/19 07:17> Vital Signs (Past 24 Hours) Last Vital Signs Temp 36.6 C 04/01/19 23:35 Pulse 68 04/01/19 23:35 Resp 14 04/01/19 23:35 BP 92/55 L 04/01/19 23:35 Pulse Ox 96 04/01/19 23:35 Constitutional well developed, well nourished, cooperative and comfortable; no acute distress Respiratory normal respiratory effort, lungs clear to auscultation Cardiovascular Rate/Rhythm: regular rate and regular rhythm Heart Sounds: + murmur (faint systolic) Extremities: no calf tenderness and no pedal edema Gastrointestinal (Abdomen) Percussion/Palpation: abdomen soft; abdomen nontender Genitourinary OB Exam Abdomen: + fundal height Fundus: + firm and + relation to umbilicus (1 cm under umbilicus); not tender <Sahil Ruiz Jr, MD, FACOG - Last Filed: 04/02/19 07:43> Co-Signing Physician Notes Resident Physician Supervision Note: I was present with Dr. San during the history and exam. I discussed the case with the resident and agree with the findings and plan as documented in the note. Any exceptions or clarifications are listed here: Patient able to void. Decreased Hgb, will start Fe. Ready for D/C. Instructions given. Documented By: Sahil Ruiz Jr, MD, FACOG Resident Activity Tracking <Jack San MD - Last Filed: 04/02/19 07:17> Resident Involvement: Resident Care Provided Care Provided: Adult [facility] Medicine
[2019-04-02] MEDS: DOCUSATE SODIUM 100 MG CAP PO SCH (10:54)
--- NOTE | 2019-04-03 08:09 | Coding Query ---
CODING QUERY To promote full compliance with coding requirements relating to patient care, provider participation is requested in all cases of nanotechnologist uncertainty. Please assist us with the question(s) below: Coding Question(s): Can you please specify the degrees to the perineum/vaginal lacerations repaired well there was a cervical laceration, a 1st degree perineal, a left labial and periclitoral Physician's Response(s): Thank you Nila Candelaria Principal Diagnosis: "that condition established after study, to be chiefly responsible for occasioning the admission of the patient to the hospital for care." Co-Existing Principal Diagnosis: "when two or more diagnoses equally meet the criteria for principal diagnosis as determined by the circumstances of admission, diagnostic work up, and/or therapy provided, and the Alphabetic Index, Tabular List, or another coding guideline does not provide sequencing direction, any one of the diagnoses may be sequenced first." "When the physician has documented what appears to be a current diagnosis in the body of the record, but has not included the diagnosis in the final diagnostic statement, the physician should be asked whether the diagnosis should be added." ([facility] 2 QTR90. p3-4) [email or web address]
== END 2019-04-02 12:40 | disposition home or self-care (01) | DRG 806 ==
LOC: OPB 19:56 → 4S1 19:58 → 4S2 03-31 15:03